=== PATIENT | male | born 1970 | race Caucasian/White ===

== ENCOUNTER 2021-10-19 01:32 | Emergency (ER) | payer SELFPAY ==
[2021-10-19] VITALS (11 sets, daily range): BP systolic 117–153; BP diastolic 80–98; PULSE 71–97; RESP 16–22; TEMP 36.5; O2SAT 95–98
--- NOTE | ~2021-10-19 | XR_ITS ---
EXAMINATION: XR chest 2V DATE: 10/19/2021 02:25 INDICATION: Chest pain. TECHNIQUE: Frontal and lateral views of the chest were obtained. COMPARISON: None. FINDINGS: The chest demonstrates clear lungs without pneumonia, pleural effusion, or pneumothorax. Th e heart size is normal. IMPRESSION: 1. No acute cardiopulmonary disease. Reviewed, dictated and finalized at location A.
--- NOTE | 2021-10-19 01:40 | ECG_ITS ---
Measurements Intervals [place] Rate: 91 P: 15 OK: 159 QRS: -19 QRSD: 98 T: -1 QT: 354 QTc: 436 Interpretive Statements SINUS RHYTHM INCOMPLETE RIGHT BUNDLE BRANCH BLOCK Electronically Signed On 10-19-2021 10:04:14 CDT by Brent Sullivan M.D.
[2021-10-19] MEDS: ONDANSETRON INJ 4 MG/2 ML VIAL IV PUSH ×2 (01:54→03:52)
[2021-10-19] MEDS: ASPIRIN 81 MG CHEWABLE TABLET 324 MG PO (01:54)
[2021-10-19] MEDS: NITROGLYCERIN SL 0.4 MG TABLET SUBLINGUAL (01:57)
--- NOTE | 2021-10-19 01:57 | ED.CHESTPAIN ---
HPI - Chest Pain General Chief Complaint: Chest Pain Stated Complaint: chest pain, SOB Time Seen by Provider: 10/19/21 01:38 History of Present Illness HPI narrative: 51-year-old male history of hypertension, CVA presenting the emergency department for evaluation of left-sided chest pain that woke him from sleep approximate 1 hour ago. Patient states while he was sleeping he woke up and had left-sided chest pain. Patient states when he got up and walked around he did have some associated dizziness and lightheadedness. Patient states the left-sided chest pain has been persistent. Patient denies any radiation of the pain to his neck or back. Patient denies any associated headache. Patient denies any acute neurologic changes. Patient did have a CVA back in 2018 and states his only residual symptoms are some intermittent left-sided leg spasms/weakness. Patient denies any acute changes tonight. Patient has no prior history of PE or DVT. Patient does take lisinopril, Cardizem and aspirin. Patient has been taking these medications daily. Patient denies any changes medications daily patient had a stress test back in 2018, he was told that he had a previous DC but does not have any stents. Patient does not have follow-up with cardiology. Related Data Home Medications Medication Instructions Recorded Confirmed aspirin 81 mg chewable tablet 81 mg PO DAILY 10/19/21 atorvastatin 80 mg tablet 1 tablet PO DAILY 10/19/21 diltiazem HCl 240 mg 1 cap PO DAILY 10/19/21 capsule,extended release 24 hr, controlled (DILT-XR) empagliflozin 25 mg-linagliptin 5 1 ea PO DAILY 10/19/21 mg-metformin ER 1,000 mg tablet,24hr (Trijardy XR) fluticasone propionate 50 1 ea intranasal BID 10/19/21 mcg/actuation nasal spray,suspension lisinopril 20 mg tablet 1 tablet PO DAILY 10/19/21 metformin 1,000 mg tablet,extended 1,000 mg PO DAILY 10/19/21 release 24hr montelukast 10 mg tablet 1 tablet PO DAILY 10/19/21 olopatadine 0.2 % eye drops 1 drp EACH EYE DAILY PRN Dry Eyes 10/19/21 omeprazole 40 mg capsule,delayed 1 cap PO DAILY 10/19/21 release Allergies Allergy/AdvReac Type Severity Reaction Status Date / Time No Known Allergies Allergy Verified 10/19/21 01:35 Review of Systems Review of Systems: CONSTITUTIONAL: Denies fever, chills, or sweats. EYES: Denies visual changes, redness, or discharge. ENT: Denies rhinorrhea, congestion, sore throat, or otalgia. CARDIOVASCULAR: See HPI RESPIRATORY: Denies cough or dyspnea. GASTROINTESTINAL: Denies abdominal pain, nausea, vomiting, or diarrhea. GENITOURINARY: Denies dysuria or hematuria. SKIN: Denies rash or itching. MUSCULOSKELETAL: Denies back pain, joint pain, or myalgia. NEUROLOGIC: Denies headache, numbness, or weakness. PSYCHIATRIC: Denies anxiety or depression. Exam Narrative: APPEARANCE: Well appearing, no pain, no distress, well-nourished. HEAD: normocephalic, atraumatic. EYES: PERRLA/EOMI, conjunctivae clear. NOSE: Normal no drainage THROAT: Pharynx clear, no exudate. NECK: Supple. No adenopathy, no masses. RESPIRATORY: Airway patent, respirations nonlabored. Clear to auscultation bilaterally, no rales, rhonchi, wheezing. CARDIOVASCULAR: Regular rate and rhythm without murmurs rubs or gallops. ABDOMINAL: Soft, nontender, nondistended, normal bowel sounds MUSCULOSKELETAL: Moves all extremities. Strength/ROM intact, No edema, No calf tenderness. NEURO: Alert. Cranial nerves II through XII intact. Grossly intact SKIN: Warm, dry. Normal Color Course Course Emergency Course: Patient reports his chest pain is resolved. Patient did have episode of nausea was treated with Zofran. Patient's EKG shows normal sinus rhythm. Patient had negative serial troponins. Patient's D-dimer was not elevated. Chest x-ray shows no acute cardiopulmonary abnormality. Patient does have some risk factors for heart disease. But patient's heart score is 3. Patient was encouraged to nielsen
[2021-10-19 02:00] LABS: Basophils Absolute Auto 0.1 K/mm3 (0.0-0.1); Basophils Percent Auto 0.6 % (0.2-1.2); Eosinophils Absolute Auto 0.1 K/mm3 (0-0.3); Eosinophils Percent Auto 0.7 % (0-4.4); Hematocrit 44.4 % (42.0-52.0); Hemoglobin 15.1 g/dL (14.0-18.0); Immature Granulocyte Absolute 0.03 K/mm3 (0.00-0.031); Immature Granulocyte Percent A 0.3 % (0-0.5); Lymphocytes Absolute Auto 2.58 K/mm3 (0.9-3.2); Lymphocytes Percent Auto 28.5 % (18.3-44.2); Mean Corpuscular Hemoglobin 29.6 pg (26-34); Mean Corpuscular Volume 87.1 fl (80-100); Mean Platelet Volume 9.9 fl (7.4-10.4); Monocytes Absolute Auto 0.6 K/mm3 (0.1-0.6); Monocytes Percent Auto 6.3 % (2.6-8.5); Neutrophils Absolute Auto 5.8 K/mm3 (1.3-6.7); Neutrophils Percent Auto 63.6 % (45.5-73.1); Platelet Count Result 237 k/mm3 (150-375); Red Cell Distribution Width 12.5 % (11.5-14.5)
[2021-10-19 02:14] LABS: Alanine Aminotransferase 35 U/L (6-50); Albumin Level 4.4 g/dL (3.5-5.1); Alkaline Phosphatase 149 U/L (38-126); Anion Gap 9 mmol/L (8-16); Aspartate Amino Transferase 23 U/L (17-59); Bilirubin,Total 0.5 mg/dL (0.2-1.3); Blood Urea Nitrogen 18 mg/dL (9-20); Calcium 9.1 mg/dL (8.4-10.2); Carbon Dioxide 21 mmol/L (22-30); Chloride 102 mmol/L (98-107); Estimated CRCL calculation 134 ml/min; Estimated Glomerular Filt Rate > 60; Glucose 323 mg/dL (65-110); INR 0.9; Lipase 122 U/L (23-300); Partial Thromboplastin Time 26.8 SECONDS (22.3-36.8); Prothrombin Time 12.2 Seconds (11.1-14.7); Sodium 132 mmol/L (137-145)
[2021-10-19 02:17] LABS: D Dimer 0.32 ug/mL (<0.48)
[2021-10-19 02:26] LABS: Troponin I < 0.012 ng/mL (0.000-0.034)
[2021-10-19 05:09] LABS: Troponin I < 0.012 ng/mL (0.000-0.034)
== END 2021-10-19 05:38 | disposition home or self-care (01) ==
PROVIDERS: Emergency Provider Emergency Medicine; PCP Internal Medicine
DX: R07.9 Chest pain, unspecified (principal); I10 Essential (primary) hypertension; Z86.73 Personal history of transient ischemic attack (TIA), and cerebral infarction without residual deficits; I45.10 Unspecified right bundle-branch block
CPT/HCPCS: 36415; 71046; 80053; 83690; 84484; 85025; 85380; 85610; 85730; 93005; 96374; 96376; 99284; A9270; J2405

== ENCOUNTER 2022-02-06 07:14 | Emergency (ER) | payer OTHER, SELFPAY ==
[2022-02-06] VITALS (34 sets, daily range): BP systolic 135–161; BP diastolic 88–144; PULSE 94–122; RESP 11–31; TEMP 37.1; O2SAT 87–98
--- NOTE | ~2022-02-06 | CT_ITS ---
EXAMINATION: CT soft tissue neck w con DATE: 02/06/2022 08:52 INDICATION: Throat pain and swelling below the chin. Difficulty swallowing. TECHNIQUE: Computed tomography (CT) of the neck was performed with 75 mL Omnipaque-350 intravenous co ntrast. The dose-length product was 574.35 mGy-cm. Automated exposure control and iterative reconstru ction technique were employed. COMPARISON: None FINDINGS: There is mild thickening of the epiglottis. Consider epiglottitis in the appropriate clinic al setting. No significant airway narrowing. [place] tonsils are prominent, consistent with tonsilli tis. No peritonsillar abscess. There is cervical lymphadenopathy bilaterally, likely reactive. No sig nificant vascular abnormality. Paranasal sinuses are unremarkable. IMPRESSION: 1. Mild thickening of the epiglottis. Consider epiglottitis in the appropriate clinical setting. 2: Enlarged palatine tonsils, consistent with tonsillitis. No evidence for abscess. 3: Cervical lymphadenopathy, likely reactive. Reviewed, dictated and finalized at location A. IMPRESSION: 1. Mild thickening of the epiglottis. Consider epiglottitis in the appropriate clinical setting. 2: Enlarged palatine tonsils, consistent with tonsillitis. No evidence for abs cess. 3: Cervical lymphadenopathy, likely reactive.
--- NOTE | 2022-02-06 07:39 | ED.GENADULT ---
HPI - General Adult General Chief complaint: Upper Respiratory Infection Stated complaint: sore throat Time Seen by Provider: 02/06/22 07:16 Source: RN notes reviewed History of Present Illness HPI narrative: Patient presents emergency room from home for sore throat. Patient states symptoms began yesterday states he developed a sore throat that is painful with swallowing states that this morning he was unable to take all of his medications and was only able to take his Ultram he states that with the sore throat has had some mild postnasal drip and mild nonproductive cough denies any fevers or chills shortness of breath abdominal pain nausea vomiting or other symptoms. States he was in the hospital last week for stroke for which she was in the hospital for total of 3 days Related Data Home Medications Medication Instructions Recorded Confirmed aspirin 81 mg chewable tablet 81 mg PO DAILY 10/19/21 diltiazem HCl 240 mg 1 cap PO DAILY 10/19/21 capsule,extended release 24 hr, controlled (DILT-XR) metformin 1,000 mg tablet,extended 1,000 mg PO DAILY 10/19/21 release 24hr clopidogrel 75 mg tablet (Plavix) 75 mg PO DAILY 02/06/22 dapagliflozin 10 mg tablet 10 mg PO DAILY 02/06/22 (Farxiga) gabapentin 300 mg tablet 300 mg PO TID 02/06/22 hydralazine 25 mg tablet 25 mg PO BID 02/06/22 tramadol 50 mg tablet 50 mg PO Q6H PRN Mild Pain (Scale 02/06/22 Score 1-4) Allergies Allergy/AdvReac Type Severity Reaction Status Date / Time No Known Allergies Allergy Verified 10/19/21 01:35 Review of Systems Review of Systems: Gen.: Denies fevers or chills Eyes: Denies eye pain or visual change ENT: See HPI Respiratory: Denies shortness of breath o reports nonproductive cough CV: Denies chest pain or palpitations GI: Denies abdominal pain nausea, emesis or diarrhea Musculoskeletal: Denies back pain or muscle pain Neuro: Denies numbness, tingling, weakness or focal weakness Skin: Denies rash Except as documented, all other systems reviewed and negative [facility] Past Medical History Medical History (Updated 02/06/22 @ 13:05 by Alex Campoverde DO) CVA (cerebral vascular accident) Social History Social History (Updated 02/06/22 @ 07:41 by Alex Campoverde DO) Smoking status: Never smoker Exam Narrative: APPEARANCE: No acute distress, nontoxic, resting in bed EYES: EOMI HEENT: Normocephalic, atraumatic, TMs clear bilaterally the nares are patent oral mucosa moist tolerating own secretions, uvula is swollen and midline there is erythema the posterior pharynx and bilateral tonsils with a bilateral tonsils 3+ no exudate seen voice is hoarse RESPIRATORY: No respiratory distress Clear to auscultation bilaterally with no rhonchi wheezing or rales. CARDIOVASCULAR: Regular rate and rhythm without murmurs rubs or gallops. ABDOMINAL: Soft, nontender, nondistended, no rebound or guarding MUSCULOSKELETAl: Moves all extremities. No clubbing, cyanosis or edema. NEURO: Awake and alert. Following commands, speech normal, no focal deficits SKIN:: Warm, dry. No rashes lesions or abrasions PSYCHIATRIC: Normal affect/mood, Course Course Emergency Course: Toby with patient no ENT available at [facility] discussed need for ENT evaluation request [facility] at this time Called discussed with ENT at [facility] Dr. López at this time requested patient transfer to the ER so they are able to evaluate him in the ED Discussed with Dr. Estrada in the emergency department [facility] accepts transfer at this time Vital Signs Vital signs: Vital Signs Temperature 98.8 F 02/06/22 07:20 Pulse Rate 119 H 02/06/22 07:20 Respiratory Rate 20 02/06/22 07:20 Blood Pressure 141/125 H 02/06/22 07:20 Pulse Oximetry 96 02/06/22 07:20 Oxygen Delivery Room Air 02/06/22 07:20 Temperature 98.8 F 02/06/22 07:20 Pulse Rate 110 H 02/06/22 13:01 Respiratory Rate 24 H 02/06/22 13:01 Blood Pressure 1
[2022-02-06 07:46] LABS: Basophils Percent Auto 0.3 % (0.2-1.2); Eosinophils Percent Auto 0.3 % (0-4.4); Hematocrit 45.4 % (42.0-52.0); Hemoglobin 15.6 g/dL (14.0-18.0); Immature Granulocyte Absolute 0.04 K/mm3 (0.00-0.031); Immature Granulocyte Percent A 0.3 % (0-0.5); Lymphocytes Absolute Auto 1.54 K/mm3 (0.9-3.2); Lymphocytes Percent Auto 11.1 % (18.3-44.2); Mean Corpuscular HGB Conc 34.4 g/dl (32-36); Mean Corpuscular Hemoglobin 29.9 pg (26-34); Mean Platelet Volume 9.5 fl (7.4-10.4); Monocytes Absolute Auto 0.6 K/mm3 (0.1-0.6); Monocytes Percent Auto 4.2 % (2.6-8.5); Neutrophils Absolute Auto 11.7 K/mm3 (1.3-6.7); Neutrophils Percent Auto 83.8 % (45.5-73.1); Platelet Count Result 237 k/mm3 (150-375); Red Blood Count 5.22 M/mm3 (4.6-6.20); Red Cell Distribution Width 12.2 % (11.5-14.5); White Blood Count 13.9 K/mm3 (4.5-10.0)
[2022-02-06] MEDS: SODIUM CHLORIDE 0.9% IV 1,000 ML 999 ML IV CONT (07:49)
[2022-02-06] MEDS: FAMOTIDINE 20 MG/2 ML VIAL IV PUSH (07:49)
[2022-02-06 08:06] LABS: Alanine Aminotransferase 31 U/L (6-50); Albumin Level 4.6 g/dL (3.5-5.1); Alkaline Phosphatase 173 U/L (38-126); Anion Gap 14 mmol/L (8-16); Aspartate Amino Transferase 21 U/L (17-59); Bilirubin,Total 0.8 mg/dL (0.2-1.3); Blood Urea Nitrogen 9 mg/dL (9-20); Carbon Dioxide 25 mmol/L (22-30); Chloride 96 mmol/L (98-107); Estimated CRCL calculation 134 ml/min; Estimated Glomerular Filt Rate > 60; Glucose 352 mg/dL (65-110); Potassium 3.7 mmol/L (3.4-5.0); Sodium 135 mmol/L (137-145)
[2022-02-06 08:12] LABS: Influenza A QL RT-PCR Negative (Negative); Influenza B QL RT-PCR Negative (Negative); SARS-CoV-2 RNA PCR Negative
[2022-02-06] MEDS: AMPICILLIN SULB 3 GM/NS 100 ML 3 GM/100 ML VIAL IVPB (09:31)
[2022-02-06 12:15] LABS: Lactic Acid Reflex 0.8 mmol/L (0.7-2.0)
== END 2022-02-06 14:18 | disposition short-term general hospital (02) ==
PROVIDERS: Emergency Provider Emergency Medicine; PCP Internal Medicine
DX: J05.10 Acute epiglottitis without obstruction (principal); J02.0 Streptococcal pharyngitis; Z20.822 Contact with and (suspected) exposure to COVID-19; Z86.73 Personal history of transient ischemic attack (TIA), and cerebral infarction without residual deficits; Z79.82 Long term (current) use of aspirin; Z79.84 Long term (current) use of oral hypoglycemic drugs
CPT/HCPCS: 36415; 70491; 80053; 83605; 85025; 87040; 87502; 87880; 96365; 96375; 99285; C9803; J0131; J0295; J1100; J7030; Q9967; U0003; U0005